=== PATIENT | male | born 1995 | race Two or more races ===

== ENCOUNTER 2017-09-17 22:52 | Emergency (ER) | payer SELFPAY ==
[~2017-09-17] VITALS: Ht 167.6 cm; Wt 77.3 kg
[2017-09-17 22:55] VITALS: BP 156/77
[2017-09-17] MEDS ORDERED: SULFAMETH./TRIMETHOPRIM DS 800MG/160MG TABLET ONE (23:52)
[2017-09-17] MEDS ORDERED: CEPHALEXIN 500 MG CAPSULE ONE (23:52)
[2017-09-17] MEDS ORDERED: LIDOCAINE 1%-EPI 1:100K, 30ML ONE (23:52)
[2017-09-18] MEDS ORDERED: LIDOCAINE 1%-EPI 1:100K, 20ML SQ ONE
[2017-09-18] MEDS ORDERED: CEPHALEXIN 500 MG CAPSULE PO ONE
[2017-09-18] MEDS ORDERED: SULFAMETH./TRIMETHOPRIM DS 800MG/160MG TABLET PO ONE
== END 2017-09-18 00:52 | disposition home or self-care (01) ==
LOC: ED 09-18 00:45
DX: L05.01 Pilonidal cyst with abscess (principal)
CPT/HCPCS: 10080; 99284; J3490

== ENCOUNTER 2017-09-19 14:33 | Emergency (ER) | payer SELFPAY ==
[~2017-09-19] VITALS: Ht 167.6 cm; Wt 76.0 kg
[2017-09-19 14:41] VITALS: BP 116/51
== END 2017-09-19 15:30 | disposition home or self-care (01) ==
LOC: ED 15:24
DX: Z48.01 Encounter for change or removal of surgical wound dressing (principal); F17.200 Nicotine dependence, unspecified, uncomplicated
CPT/HCPCS: 99282

== ENCOUNTER 2019-01-06 12:38 | Emergency (ER) | payer SELFPAY ==
[~2019-01-06] VITALS: Ht 167.6 cm; Wt 71.0 kg
[2019-01-06 12:45] VITALS: BP 129/72
[2019-01-06] MEDS ORDERED: ONDANSETRON ODT 4 MG PO ONE (13:30)
[2019-01-06 14:03] LABS: BASOPHILS # (AUTO) 0.01 x10^3/uL (0-0.1); BASOPHILS % (AUTO) 0 % (0-1); EOSINOPHILS % (AUTO) 0 % (1-7); LYMPHOCYTES # (AUTO) 0.95 x10^3/uL (1-3.4); LYMPHOCYTES % (AUTO) 13 % (22-44); MD NO; MEAN CORPUSCULAR HEMOGLOBIN 29.6 pg (27.5-34.5); MEAN CORPUSCULAR HGB CONC 33.4 g/dL (33.2-36.2); MEAN CORPUSCULAR VOLUME 88.6 fL (81-97); MEAN PLATELET VOLUME 9.9 fL (7.4-10.4); MONOCYTES # (AUTO) 0.42 x10^3/uL (0.2-0.8); MONOCYTES % (AUTO) 6 % (2-9); NEUTROPHILS # (AUTO) 6.05 x10^3/uL (1.8-6.8); NEUTROPHILS % (AUTO) 81 % (42-75); PLATELET COUNT 182 x10^3/uL (130-400); RED BLOOD COUNT 5.54 x10^6/uL (4.38-5.82); RED CELL DISTRIBUTION WIDTH 13.8 % (9.4-14.8)
[2019-01-06] MEDS ORDERED: ONDANSETRON ODT 4 MG ONE (14:03)
[2019-01-06 14:10] LABS: ALANINE AMINOTRANSFERASE 27 U/L (12-78); ALBUMIN 4.5 g/dL (3.4-5.0); ANION GAP 8 mmol/L (5-15); CALCIUM 9.2 mg/dL (8.5-10.1); CHLORIDE 109 mmol/L (98-107); CREATININE 0.95 mg/dL (0.7-1.3)
[2019-01-06 14:13] LABS: ALKALINE PHOSPHATASE 84 U/L (45-117); BILIRUBIN,TOTAL 0.4 mg/dL (0.2-1.0); TOTAL PROTEIN 8.7 g/dL (6.4-8.2)
== END 2019-01-06 15:28 | disposition home or self-care (01) ==
LOC: ED 14:01
DX: R11.2 Nausea with vomiting, unspecified (principal); R10.84 Generalized abdominal pain
CPT/HCPCS: 36415; 74021; 80053; 83690; 85025; 99284; Q0162

== ENCOUNTER 2019-01-10 15:04 | Inpatient (IN) | payer OTHER ==
[~2019-01-10] VITALS: Ht 165.1 cm; Wt 77.0 kg
[~2019-01-10 15:04] MED LIST: DEXAMETHASONE 4 MG/ML, 1ML ONE
[2019-01-10 15:47] LABS: ALBUMIN 3.4 g/dL (3.4-5.0); ANION GAP 6 mmol/L (5-15); CALCIUM 9.6 mg/dL (8.5-10.1); CHLORIDE 107 mmol/L (98-107); CREATININE 0.95 mg/dL (0.7-1.3)
[2019-01-10 15:50] LABS: BASOPHILS # (AUTO) 0.01 x10^3/uL (0-0.1); BASOPHILS % (AUTO) 0 % (0-1); EOSINOPHILS % (AUTO) 0 % (1-7); LYMPHOCYTES # (AUTO) 0.85 x10^3/uL (1-3.4); LYMPHOCYTES % (AUTO) 7 % (22-44); MEAN CORPUSCULAR HEMOGLOBIN 28.7 pg (27.5-34.5); MEAN CORPUSCULAR HGB CONC 32.8 g/dL (33.2-36.2); MEAN CORPUSCULAR VOLUME 87.5 fL (81-97); MONOCYTES # (AUTO) 0.76 x10^3/uL (0.2-0.8); MONOCYTES % (AUTO) 7 % (2-9); NEUTROPHILS # (AUTO) 9.99 x10^3/uL (1.8-6.8); NEUTROPHILS % (AUTO) 86 % (42-75); PLATELET COUNT 175 x10^3/uL (130-400); RED BLOOD COUNT 5.33 x10^6/uL (4.38-5.82); RED CELL DISTRIBUTION WIDTH 13.9 % (9.4-14.8)
[2019-01-10 15:51] LABS: MD NO
--- NOTE | 2019-01-10 18:08 | NUR ---
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
--- NOTE | 2019-01-10 18:53 | NUR ---
pt states he has been sick for 6 days with nausea but able to keep fluids down. pt states he started feeling lighthead since tuesday. family at bedside.
--- NOTE | 2019-01-10 18:58 | NUR ---
UOB TO BATHROOM
--- NOTE | 2019-01-10 18:59 | NUR ---
REPORT TO ARCELIA YEE
[2019-01-10] MEDS ORDERED: MORPHINE SULFATE 4 MG/ML, 1ML IVPush PRN ×2 (19:00→20:30)
[2019-01-10] MEDS ORDERED: ONDANSETRON 2MG/ML, 2ML IVPush ONE (19:00)
[2019-01-10] MEDS ORDERED: ONDANSETRON 2MG/ML, 2ML ONE ×2 (19:08→23:34)
[2019-01-10] MEDS ORDERED: MORPHINE SULFATE 4 MG/ML, 1ML ONE ×2 (19:08→20:18)
[2019-01-10 19:22] LABS: MICROSCOPIC INDICATED
[2019-01-10] MEDS ORDERED: OMNIPAQUE 350 MG/ML, 100ML BOTTLE ONE (19:34)
[2019-01-10 19:41] LABS: CULTURE INDICATED? NO
--- NOTE | 2019-01-10 19:44 | NUR ---
PT MEDICATED FOR PAIN, TO CT, AWAITING RESULTS
[2019-01-10] MEDS ORDERED: METRONIDAZOLE PMX 500MG/100ML 100 ML ONE (20:17)
[2019-01-10] MEDS ORDERED: CEFTRIAXONE PMX 1GM/50ML 50 ML ONE (20:18)
[2019-01-10] MEDS ORDERED: METRONIDAZOLE PMX 500MG/100ML 100 ML IV ONE (20:30)
[2019-01-10] MEDS ORDERED: SODIUM CHLORIDE 0.9% 1,000ML IVBOLUS ONE (20:30)
[2019-01-10] MEDS ORDERED: CEFTRIAXONE PMX 1GM/50ML 50 ML IV ONE (20:30)
--- NOTE | 2019-01-10 20:57 | NUR ---
pt resting in bed, aware of need for surgery, abx started, no complaints at this time
--- NOTE | 2019-01-10 21:08 | NUR ---
report called to OR and medical
[2019-01-10] MEDS ORDERED: MIDAZOLAM 1 MG/ML, 2ML ONE (22:13)
[2019-01-10] MEDS ORDERED: FENTANYL PF 250 MCG/5ML ONE (22:13)
[2019-01-10] MEDS ORDERED: BUPIVACAINE/PF 0.5% ONE (22:24)
[2019-01-10] MEDS ORDERED: EPINEPHRINE 1 MG/ML, 1ML ONE (22:24)
[2019-01-10] MEDS ORDERED: MIDAZOLAM 1 MG/ML, 2ML IV PRN (23:30)
[2019-01-10] MEDS ORDERED: OXYcodone 5 MG/5 ML ORAL.SOL UDC PO PRN (23:30)
[2019-01-10] MEDS ORDERED: ALBUTEROL/IPRATROPIUM 2.5MG/0.5MG, 3 ML NPPB PRN (23:30)
[2019-01-10] MEDS ORDERED: METOPROLOL 1 MG/ML, 5ML IV PRN (23:30)
[2019-01-10] MEDS ORDERED: FENTANYL PF 100 MCG/2ML IV PRN (23:30)
[2019-01-10] MEDS ORDERED: ACETAMINOPHEN 325 MG TABLET PO PRN (23:30)
[2019-01-10] MEDS ORDERED: hydrALAzine 20 MG/ML, 1ML IV PRN (23:30)
[2019-01-10] MEDS ORDERED: HYDROmorphone 2 MG/ML, 1ML IVPush PRN (23:30)
[2019-01-10] MEDS ORDERED: PROMETHAZINE 25 MG/ML, 1ML IV PRN (23:30)
[2019-01-10] MEDS ORDERED: MEPERIDINE/PF 25MG/ML,1ML IVPush PRN (23:30)
[2019-01-10] MEDS ORDERED: GLYCOPYRROLATE 0.2MG/1ML, 5ML ONE (23:34)
[2019-01-10] MEDS ORDERED: ROCURONIUM 10MG/ML,5ML ONE (23:34)
[2019-01-10] MEDS ORDERED: KETOROLAC 30 MG/1 ML ONE (23:34)
[2019-01-10] MEDS ORDERED: SUCCINYLCHOLINE 20 MG/ML, 10ML ONE (23:34)
[2019-01-10] MEDS ORDERED: NEOSTIGMINE 1 MG/ML, 10ML ONE (23:34)
[2019-01-10] MEDS ORDERED: PROPOFOL 10 MG/ML, 20ML ONE (23:34)
[2019-01-11] MEDS ORDERED: ACETAMINOPHEN 650 MG/20.3 ML UDC PO PRN
[2019-01-11] MEDS ORDERED: DIPHENHYDRAMINE 25 MG CAPSULE PO PRN
[2019-01-11] MEDS ORDERED: MORPHINE SULFATE 4 MG/ML, 1ML IVPush PRN
[2019-01-11] MEDS: OXYcodone/APAP 5/325MG TABLET PO PRN ×3 (01:54→19:29)
[2019-01-11] MEDS: POTASSIUM CHLORIDE 20 MEQ in D5%-0.45% NACL 1,000 ML IV SCH ×3 (02:20→20:54)
[2019-01-11 04:05] VITALS: BP 124/76
[2019-01-11] MEDS: METRONIDAZOLE PMX 500MG/100ML 100 ML IV SCH ×3 (05:09→20:59)
[2019-01-11 06:58] VITALS: BP 109/69
[2019-01-11] MEDS: CEFTRIAXONE PMX 1GM/50ML 50 ML IV SCH ×2 (08:28→19:30)
[2019-01-11] MEDS: ONDANSETRON 2MG/ML, 2ML IVPush PRN ×3 (08:29→23:45)
[2019-01-11] MEDS: ENOXAPARIN 40 MG/0.4 ML SQ SCH (08:31)
[2019-01-11 08:32] LABS: MEAN CORPUSCULAR HEMOGLOBIN 28.9 pg (27.5-34.5); MEAN CORPUSCULAR HGB CONC 32.7 g/dL (33.2-36.2); MEAN CORPUSCULAR VOLUME 88.2 fL (81-97); MEAN PLATELET VOLUME 9.7 fL (7.4-10.4); PLATELET COUNT 169 x10^3/uL (130-400); RED BLOOD COUNT 4.56 x10^6/uL (4.38-5.82); RED CELL DISTRIBUTION WIDTH 14.4 % (9.4-14.8)
[2019-01-11 08:34] LABS: ANION GAP 5 mmol/L (5-15); CALCIUM 8.7 mg/dL (8.5-10.1); CHLORIDE 106 mmol/L (98-107); CREATININE 0.66 mg/dL (0.7-1.3)
[2019-01-11 08:35] LABS: ALBUMIN 2.6 g/dL (3.4-5.0)
[2019-01-11 09:08] LABS: BASOPHILS % (AUTO) 0 % (0-1); EOSINOPHILS % (AUTO) 0 % (1-7); LYMPHOCYTES # (AUTO) 0.81 x10^3/uL (1-3.4); LYMPHOCYTES % (AUTO) 7 % (22-44); MD SCAN; MONOCYTES # (AUTO) 0.43 x10^3/uL (0.2-0.8); MONOCYTES % (AUTO) 4 % (2-9); NEUTROPHILS # (AUTO) 9.89 x10^3/uL (1.8-6.8); NEUTROPHILS % (AUTO) 89 % (42-75)
[2019-01-11 12:08] VITALS: BP 122/79
[2019-01-11] MEDS: DOCUSATE 100 MG CAPSULE PO SCH ×2 (14:41→20:59)
[2019-01-11 17:30] VITALS: BP 133/91
[2019-01-11] MEDS: KETOROLAC 30 MG/1 ML IV PRN ×2 (17:32→23:40)
[2019-01-11 20:44] VITALS: BP 141/95
[2019-01-12] MEDS: OXYcodone/APAP 5/325MG TABLET PO PRN ×6 (00:31→23:29)
[2019-01-12 01:18] VITALS: BP 134/91
[2019-01-12] MEDS: METRONIDAZOLE PMX 500MG/100ML 100 ML IV SCH ×3 (04:47→21:19)
[2019-01-12 05:54] LABS: MEAN CORPUSCULAR HEMOGLOBIN 28.8 pg (27.5-34.5); MEAN CORPUSCULAR HGB CONC 33.1 g/dL (33.2-36.2); PLATELET COUNT 221 x10^3/uL (130-400); RED CELL DISTRIBUTION WIDTH 14.4 % (9.4-14.8)
[2019-01-12 06:05] LABS: CHLORIDE 102 mmol/L (98-107)
[2019-01-12 06:09] LABS: ANION GAP 8 mmol/L (5-15); CALCIUM 8.7 mg/dL (8.5-10.1); CREATININE 0.73 mg/dL (0.7-1.3)
[2019-01-12 07:50] LABS: BASOPHILS # (AUTO) 0.03 x10^3/uL (0-0.1); BASOPHILS % (AUTO) 0 % (0-1); EOSINOPHILS # (AUTO) 0.03 x10^3/uL (0-0.4); EOSINOPHILS % (AUTO) 0 % (1-7); LYMPHOCYTES % (AUTO) 15 % (22-44); MD SCAN; MONOCYTES # (AUTO) 1.31 x10^3/uL (0.2-0.8); MONOCYTES % (AUTO) 11 % (2-9); NEUTROPHILS # (AUTO) 9.19 x10^3/uL (1.8-6.8); NEUTROPHILS % (AUTO) 74 % (42-75)
[2019-01-12] MEDS: CEFTRIAXONE PMX 1GM/50ML 50 ML IV SCH ×2 (07:53→20:12)
[2019-01-12 08:10] VITALS: BP 124/80
[2019-01-12] MEDS: POTASSIUM CHLORIDE 20 MEQ in D5%-0.45% NACL 1,000 ML IV SCH ×2 (08:18→18:24)
[2019-01-12] MEDS: ENOXAPARIN 40 MG/0.4 ML SQ SCH (09:00)
[2019-01-12] MEDS: DOCUSATE 100 MG CAPSULE PO SCH ×2 (09:00→20:12)
[2019-01-12] MEDS: KETOROLAC 30 MG/1 ML IV PRN ×2 (09:01→18:15)
[2019-01-12] MEDS: ONDANSETRON 2MG/ML, 2ML IVPush PRN ×2 (12:30→18:15)
[2019-01-12 14:33] VITALS: BP 144/90
[2019-01-12 20:04] VITALS: BP 121/81
[2019-01-13] MEDS: KETOROLAC 30 MG/1 ML IV PRN ×3 (00:50→17:07)
[2019-01-13] MEDS: ONDANSETRON 2MG/ML, 2ML IVPush PRN ×3 (00:50→17:07)
[2019-01-13 01:34] VITALS: BP 127/85
[2019-01-13] MEDS: POTASSIUM CHLORIDE 20 MEQ in D5%-0.45% NACL 1,000 ML IV SCH ×2 (03:31→14:36)
[2019-01-13] MEDS: OXYcodone/APAP 5/325MG TABLET PO PRN ×4 (03:31→22:27)
[2019-01-13] MEDS: METRONIDAZOLE PMX 500MG/100ML 100 ML IV SCH ×3 (05:00→21:48)
[2019-01-13 06:19] LABS: BASOPHILS # (AUTO) 0.03 x10^3/uL (0-0.1); BASOPHILS % (AUTO) 0 % (0-1); EOSINOPHILS # (AUTO) 0.18 x10^3/uL (0-0.4); EOSINOPHILS % (AUTO) 2 % (1-7); LYMPHOCYTES # (AUTO) 1.92 x10^3/uL (1-3.4); LYMPHOCYTES % (AUTO) 18 % (22-44); MD NO; MEAN CORPUSCULAR HGB CONC 32.9 g/dL (33.2-36.2); MEAN CORPUSCULAR VOLUME 88.2 fL (81-97); MEAN PLATELET VOLUME 8.7 fL (7.4-10.4); MONOCYTES # (AUTO) 1.25 x10^3/uL (0.2-0.8); MONOCYTES % (AUTO) 12 % (2-9); NEUTROPHILS # (AUTO) 7.31 x10^3/uL (1.8-6.8); NEUTROPHILS % (AUTO) 68 % (42-75); PLATELET COUNT 253 x10^3/uL (130-400); RED BLOOD COUNT 4.43 x10^6/uL (4.38-5.82); RED CELL DISTRIBUTION WIDTH 14.3 % (9.4-14.8)
[2019-01-13 06:30] LABS: ANION GAP 8 mmol/L (5-15); CALCIUM 8.5 mg/dL (8.5-10.1); CHLORIDE 104 mmol/L (98-107)
[2019-01-13 06:31] LABS: CREATININE 0.63 mg/dL (0.7-1.3)
[2019-01-13 08:18] VITALS: BP 133/87
[2019-01-13] MEDS: ENOXAPARIN 40 MG/0.4 ML SQ SCH (08:28)
[2019-01-13] MEDS: DOCUSATE 100 MG CAPSULE PO SCH ×2 (08:28→21:48)
[2019-01-13] MEDS: CEFTRIAXONE PMX 1GM/50ML 50 ML IV SCH ×2 (08:28→19:44)
[2019-01-13] MEDS: BISACODYL 10 MG SUPP PR PRN (10:24)
[2019-01-13 14:00] VITALS: BP 124/68
[2019-01-13 21:59] VITALS: BP 128/83
[2019-01-14] MEDS: POTASSIUM CHLORIDE 20 MEQ in D5%-0.45% NACL 1,000 ML IV SCH ×3 (00:42→20:54)
[2019-01-14] MEDS: ONDANSETRON 2MG/ML, 2ML IVPush PRN (00:50)
[2019-01-14 02:58] VITALS: BP 125/75
[2019-01-14] MEDS: OXYcodone/APAP 5/325MG TABLET PO PRN ×2 (05:05→18:27)
[2019-01-14] MEDS: METRONIDAZOLE PMX 500MG/100ML 100 ML IV SCH ×3 (05:12→22:16)
[2019-01-14 07:19] VITALS: BP 125/79
[2019-01-14] MEDS: DOCUSATE 100 MG CAPSULE PO SCH ×2 (08:15→20:34)
[2019-01-14] MEDS: ENOXAPARIN 40 MG/0.4 ML SQ SCH (08:15)
[2019-01-14] MEDS: CEFTRIAXONE PMX 1GM/50ML 50 ML IV SCH ×2 (08:32→20:34)
[2019-01-14 14:00] VITALS: BP 136/82
[2019-01-14 19:03] VITALS: BP 119/77
[2019-01-14] MEDS: BISACODYL 10 MG SUPP PR PRN (20:34)
[2019-01-15 01:20] VITALS: BP 118/73
[2019-01-15] MEDS: ONDANSETRON 2MG/ML, 2ML IVPush PRN (01:33)
[2019-01-15] MEDS: OXYcodone/APAP 5/325MG TABLET PO PRN (04:19)
[2019-01-15 05:05] LABS: BASOPHILS # (AUTO) 0.04 x10^3/uL (0-0.1); BASOPHILS % (AUTO) 0 % (0-1); EOSINOPHILS # (AUTO) 0.19 x10^3/uL (0-0.4); EOSINOPHILS % (AUTO) 2 % (1-7); LYMPHOCYTES # (AUTO) 2.44 x10^3/uL (1-3.4); LYMPHOCYTES % (AUTO) 22 % (22-44); MD NO; MEAN CORPUSCULAR HEMOGLOBIN 29.4 pg (27.5-34.5); MEAN CORPUSCULAR HGB CONC 33.1 g/dL (33.2-36.2); MEAN CORPUSCULAR VOLUME 88.8 fL (81-97); MEAN PLATELET VOLUME 8.3 fL (7.4-10.4); MONOCYTES # (AUTO) 0.93 x10^3/uL (0.2-0.8); MONOCYTES % (AUTO) 8 % (2-9); NEUTROPHILS % (AUTO) 68 % (42-75); PLATELET COUNT 341 x10^3/uL (130-400); RED BLOOD COUNT 4.49 x10^6/uL (4.38-5.82); RED CELL DISTRIBUTION WIDTH 14.5 % (9.4-14.8)
[2019-01-15] MEDS: METRONIDAZOLE PMX 500MG/100ML 100 ML IV SCH ×3 (05:48→22:21)
[2019-01-15] MEDS: POTASSIUM CHLORIDE 20 MEQ in D5%-0.45% NACL 1,000 ML IV SCH ×2 (06:46→15:12)
[2019-01-15 07:51] VITALS: BP 117/75
[2019-01-15] MEDS: ENOXAPARIN 40 MG/0.4 ML SQ SCH (08:12)
[2019-01-15] MEDS: CEFTRIAXONE PMX 1GM/50ML 50 ML IV SCH ×2 (08:12→20:23)
[2019-01-15] MEDS: DOCUSATE 100 MG CAPSULE PO SCH ×2 (08:12→20:23)
[2019-01-15 13:10] VITALS: BP 119/73
[2019-01-15 19:39] VITALS: BP 121/80
[2019-01-16 01:21] VITALS: BP 122/73
[2019-01-16] MEDS: POTASSIUM CHLORIDE 20 MEQ in D5%-0.45% NACL 1,000 ML IV SCH (02:19)
[2019-01-16 04:58] LABS: BASOPHILS # (AUTO) 0.04 x10^3/uL (0-0.1); BASOPHILS % (AUTO) 0 % (0-1); EOSINOPHILS # (AUTO) 0.18 x10^3/uL (0-0.4); EOSINOPHILS % (AUTO) 2 % (1-7); LYMPHOCYTES # (AUTO) 2.34 x10^3/uL (1-3.4); LYMPHOCYTES % (AUTO) 23 % (22-44); MD NO; MEAN CORPUSCULAR HEMOGLOBIN 28.6 pg (27.5-34.5); MEAN CORPUSCULAR HGB CONC 32.4 g/dL (33.2-36.2); MEAN CORPUSCULAR VOLUME 88.4 fL (81-97); MONOCYTES % (AUTO) 10 % (2-9); NEUTROPHILS # (AUTO) 6.65 x10^3/uL (1.8-6.8); NEUTROPHILS % (AUTO) 65 % (42-75); PLATELET COUNT 394 x10^3/uL (130-400); RED BLOOD COUNT 4.72 x10^6/uL (4.38-5.82); RED CELL DISTRIBUTION WIDTH 14.3 % (9.4-14.8)
[2019-01-16 05:11] LABS: ANION GAP 8 mmol/L (5-15); CHLORIDE 105 mmol/L (98-107); CREATININE 0.75 mg/dL (0.7-1.3)
[2019-01-16] MEDS: METRONIDAZOLE PMX 500MG/100ML 100 ML IV SCH (05:50)
[2019-01-16 07:02] VITALS: BP 131/71
[2019-01-16] MEDS: CEFTRIAXONE PMX 1GM/50ML 50 ML IV SCH (08:36)
[2019-01-16] MEDS: DOCUSATE 100 MG CAPSULE PO SCH (08:36)
[2019-01-16] MEDS: ENOXAPARIN 40 MG/0.4 ML SQ SCH (08:36)
[2019-01-16] MEDS ORDERED: OXYC-302 PO (10:45)
[2019-01-16] MEDS ORDERED: ONDA4TAB7 PO (10:46)
[2019-01-16] MEDS ORDERED: AMOX1TAB64 PO (10:46)
[2019-01-16] MEDS ORDERED: FLU VACC QS2019-20 36MOS UP/PF 0.5 ML IM-VACC ONE (11:30)
== END 2019-01-16 12:00 | disposition home or self-care (01) | DRG 339 ==
LOC: ED 19:00 → EDIP 20:47 → 4NE 01-11 01:03 → DCLOUNGE 01-16 11:47
PROVIDERS: ADMIT Surgery; ATTEND Surgery
PROC: 0DTJ4ZZ Resection of Appendix, Percutaneous Endoscopic Approach (ICD-10-PCS; principal; 2019-01-10 23:00)
DX: K35.21 Acute appendicitis with generalized peritonitis, with abscess (principal); K56.7 Ileus, unspecified
CPT/HCPCS: 36415; 74021; 96365; 96375; 96376; 99285; S0020; 74177; 80048; 81001; 82040; 85025; 88304; 90686; 93005; G0378; J0171; J0696; J1100; J1650; J1885; J2250; J2405; J2704; J2710; J3010; J3480; Q9967; J0330; J2270; J7030